=== PATIENT | male | born 1955 | race Two or more races ===

== ENCOUNTER 2017-04-23 16:10 | Inpatient (IN) | payer MEDICAID, OTHER ==
[~2017-04-23] VITALS: Ht 170.2 cm; Wt 65.0 kg
[2017-04-23 17:56] LABS: Basophils # (auto) 0 uL; Eosinophils # (auto) 0 uL; Hematocrit 36.6 % (41.0-53.0); Hemoglobin 12.7 g/dL (13.5-17.5); Monocytes # (auto) 0.2 uL; White Blood Cell 2.7 10^3/uL (4.4-10.8)
[2017-04-23 17:57] LABS: Basophils % (auto) 0.5 % (0.0-2.0); Eosinophils % (auto) 0.2 % (0.0-7.0); Lymphocytes # (auto) 0.3 uL; Mean Corpuscular Hemoglobin 30.8 pg (28.0-32.0); Mean Corpuscular Hgb Conc. 34.7 g/dL (32.0-36.0); Mean Corpuscular Volume 88.7 fL (80.0-100.0); Monocytes % (auto) 7.6 % (0.0-12.0); Neutrophils # (auto) 2.1 uL; Neutrophils % (auto) 78.7 % (37.0-80.0); Nucleated Red Blood Cells % 0.2 %; Platelet Count (auto) 40 10^3/uL (140-450); Red Blood Cells 4.12 10^6/uL (4.5-5.90); Red Cell Distribution Width 14.7 % (11.8-14.3)
[2017-04-23 18:05] LABS: Albumin 2.8 g/dL (3.4-5.0); BUN/Creatinine Ratio 7.9; Calcium 7.7 mg/dL (8.5-10.1); Potassium 3.4 mmol/L (3.5-5.1)
[2017-04-23 18:09] LABS: Bilirubin, Total 1.6 mg/dL (0.2-1.0); Total Protein 7.4 g/dL (6.4-8.2)
[2017-04-23] MEDS ORDERED: SODIUM CHLORIDE 0.9% 1,000 ML IV ONE (23:45)
[2017-04-23] MEDS ORDERED: HYDROcodone-ACET 5/325MG TAB PO PRN (23:45)
[2017-04-23] MEDS ORDERED: TEMAZEPAM 15 MG CAP PO PRN (23:45)
[2017-04-23] MEDS ORDERED: chlordiazePOXIDE HCL 5 MG CAP PO PRN (23:45)
[2017-04-23] MEDS ORDERED: ONDANSETRON HCL 4 MG/2 ML VIAL IV PRN (23:45)
[2017-04-23] MEDS ORDERED: SODIUM CHLORIDE 0.9% 1,000 ML IV SCH (23:45)
[2017-04-23] MEDS ORDERED: POTASSIUM CHL 20 Meq TABLET PO ONE (23:45)
[2017-04-23] MEDS ORDERED: ACETAMINOPHEN 325 MG TAB PO PRN (23:45)
[2017-04-24] VITALS (10 sets, daily range): BP systolic 118–150; BP diastolic 67–86
[2017-04-24 08:11] LABS: Eosinophils # (auto) 0 uL; Hemoglobin 11.3 g/dL (13.5-17.5); Monocytes # (auto) 0.3 uL; White Blood Cell 2.7 10^3/uL (4.4-10.8)
[2017-04-24 08:14] LABS: Basophils # (auto) 0 uL; Basophils % (auto) 0.6 % (0.0-2.0); Eosinophils % (auto) 0.9 % (0.0-7.0); Hematocrit 31.9 % (41.0-53.0); Lymphocytes # (auto) 0.5 uL; Lymphocytes % (auto) 18.9 % (10.0-50.0); Mean Corpuscular Hemoglobin 31.1 pg (28.0-32.0); Mean Corpuscular Hgb Conc. 35.3 g/dL (32.0-36.0); Mean Corpuscular Volume 88.1 fL (80.0-100.0); Monocytes % (auto) 12.5 % (0.0-12.0); Neutrophils # (auto) 1.8 uL; Neutrophils % (auto) 67.1 % (37.0-80.0); Nucleated Red Blood Cells % 0.2 %; Platelet Count (auto) 36 10^3/uL (140-450); Red Blood Cells 3.62 10^6/uL (4.5-5.90)
[2017-04-24 08:27] LABS: Albumin 2.5 g/dL (3.4-5.0); BUN/Creatinine Ratio 8.6; Bilirubin, Total 1.7 mg/dL (0.2-1.0); Total Protein 6.9 g/dL (6.4-8.2)
[2017-04-24] MEDS ORDERED: SPIRONOLACTONE 25 MG TAB PO SCH (10:00)
[2017-04-24] MEDS: ENOXAPARIN SOD 40 MG/0.4 ML SYRINGE SC SCH (10:10)
[2017-04-24] MEDS: FOLIC ACID 1 MG TAB PO SCH (10:10)
[2017-04-24] MEDS: THIAMINE HCL 100 MG TAB PO SCH (10:11)
[2017-04-24] MEDS: FAMOTIDINE 20 MG TAB PO SCH ×2 (10:11→23:03)
[2017-04-24] MEDS ORDERED: PROPRANOLOL HCL 20 MG TAB PO ONE (12:30)
[2017-04-24] MEDS ORDERED: FUROSEMIDE 20 MG TAB PO ONE (12:30)
[2017-04-24] MEDS ORDERED: IOHEXOL 300 MG/ML 100ML BOTTLE IJ ONE (13:07)
[2017-04-24 13:39] LABS: INR 1.34 (0.9-1.15); Partial Thromboplastin Time 30.3 sec (22.64-33.71); Prothrombin Time 14.7 sec (9.37-12.3)
[2017-04-24] MEDS: NutriHep 250 mL Bottle PO SCH (22:00)
[2017-04-24] MEDS: PROPRANOLOL HCL 20 MG TAB PO SCH (22:00)
[2017-04-24] MEDS: SPIRONOLACTONE 25 MG TAB PO SCH (23:03)
[2017-04-25] VITALS (15 sets, daily range): BP systolic 104–137; BP diastolic 57–78
[2017-04-25 08:34] LABS: Basophils # (auto) 0 uL; Eosinophils # (auto) 0 uL; Hemoglobin 10.7 g/dL (13.5-17.5); Lymphocytes # (auto) 0.3 uL; Monocytes # (auto) 0.4 uL; Neutrophils # (auto) 1.5 uL; Red Blood Cells 3.46 10^6/uL (4.5-5.90); Red Cell Distribution Width 14.8 % (11.8-14.3); White Blood Cell 2.3 10^3/uL (4.4-10.8)
[2017-04-25 08:36] LABS: Basophils % (auto) 0.8 % (0.0-2.0); Eosinophils % (auto) 1.4 % (0.0-7.0); Hematocrit 30.2 % (41.0-53.0); Lymphocytes % (auto) 14.4 % (10.0-50.0); Mean Corpuscular Hgb Conc. 35.5 g/dL (32.0-36.0); Mean Corpuscular Volume 87.4 fL (80.0-100.0); Monocytes % (auto) 17.3 % (0.0-12.0); Neutrophils % (auto) 66.1 % (37.0-80.0); Nucleated Red Blood Cells % 0.5 %
[2017-04-25 08:48] LABS: Platelet Count (auto) 38 10^3/uL (140-450)
[2017-04-25 09:00] LABS: Albumin 2.5 g/dL (3.4-5.0); BUN/Creatinine Ratio 11.9; Bilirubin, Total 3.1 mg/dL (0.2-1.0); Calcium 7.5 mg/dL (8.5-10.1); Potassium 3.3 mmol/L (3.5-5.1); Total Protein 6.7 g/dL (6.4-8.2)
[2017-04-25 10:38] LABS: Basophils # (auto) 0 uL; Eosinophils # (auto) 0 uL; Hemoglobin 12.5 g/dL (13.5-17.5); Monocytes # (auto) 0.4 uL; Neutrophils # (auto) 2.2 uL; White Blood Cell 3.1 10^3/uL (4.4-10.8)
[2017-04-25] MEDS: THIAMINE HCL 100 MG TAB PO SCH (10:39)
[2017-04-25] MEDS: FUROSEMIDE 20 MG TAB PO SCH (10:39)
[2017-04-25 10:40] LABS: Basophils % (auto) 0.8 % (0.0-2.0); Hematocrit 36.1 % (41.0-53.0); Lymphocytes # (auto) 0.3 uL; Lymphocytes % (auto) 11.3 % (10.0-50.0); Mean Corpuscular Hemoglobin 30.6 pg (28.0-32.0); Mean Corpuscular Hgb Conc. 34.5 g/dL (32.0-36.0); Mean Corpuscular Volume 88.6 fL (80.0-100.0); Monocytes % (auto) 14.1 % (0.0-12.0); Neutrophils % (auto) 72.8 % (37.0-80.0); Nucleated Red Blood Cells % 0.1 %; Platelet Count (auto) 55 10^3/uL (140-450); Red Blood Cells 4.07 10^6/uL (4.5-5.90); Red Cell Distribution Width 15.2 % (11.8-14.3)
[2017-04-25] MEDS: SPIRONOLACTONE 25 MG TAB PO SCH ×2 (10:40→21:18)
[2017-04-25] MEDS: FOLIC ACID 1 MG TAB PO SCH (10:40)
[2017-04-25] MEDS: ENOXAPARIN SOD 40 MG/0.4 ML SYRINGE SC SCH (10:40)
[2017-04-25] MEDS: FAMOTIDINE 20 MG TAB PO SCH ×2 (10:40→21:18)
[2017-04-25 10:55] LABS: INR 1.34 (0.9-1.15); Prothrombin Time 14.7 sec (9.37-12.3)
[2017-04-25] MEDS ORDERED: ALBUMIN 25% 100 ML IV SCH (11:00)
[2017-04-25] MEDS ORDERED: LIDOCAINE 2%HCL (LOCAL ANESTH.) INJ 20ML MDV ONE (14:42)
[2017-04-25] MEDS: NutriHep 250 mL Bottle PO SCH ×2 (15:19→21:19)
[2017-04-25] MEDS: PROPRANOLOL HCL 20 MG TAB PO SCH ×2 (15:20→21:18)
[2017-04-26 05:59] VITALS: BP 128/71
[2017-04-26 08:42] VITALS: BP 118/76
[2017-04-26] MEDS: SPIRONOLACTONE 25 MG TAB PO SCH (10:43)
[2017-04-26] MEDS: PROPRANOLOL HCL 20 MG TAB PO SCH (10:43)
[2017-04-26] MEDS: FOLIC ACID 1 MG TAB PO SCH (10:43)
[2017-04-26] MEDS: FUROSEMIDE 20 MG TAB PO SCH (10:44)
[2017-04-26] MEDS: THIAMINE HCL 100 MG TAB PO SCH (10:44)
[2017-04-26] MEDS: FAMOTIDINE 20 MG TAB PO SCH (10:44)
[2017-04-26] MEDS ORDERED: FUR20T PO (10:48)
[2017-04-26] MEDS ORDERED: FOLI1TAB6 PO (10:48)
[2017-04-26] MEDS ORDERED: PRO20T PO (10:48)
[2017-04-26] MEDS ORDERED: THIA100T11 PO (10:48)
[2017-04-26] MEDS ORDERED: SPIR25TA88 PO (10:48)
[2017-04-26 11:09] VITALS: BP 118/76
[2017-04-26 13:11] VITALS: BP 108/62
== END 2017-04-26 14:30 | disposition home or self-care (01) | DRG 280 ==
LOC: EDBD 16:10 → ER 16:13 → OVERFLOW 16:14 → CENTRAL 04-24 02:04
PROVIDERS: ADMIT Nurse Practitioner; ATTEND Internal Medicine
PROC: 0W9G30Z Drainage of Peritoneal Cavity with Drainage Device, Percutaneous Approach (ICD-10-PCS; principal; 2017-04-25)
DX: K70.31 Alcoholic cirrhosis of liver with ascites (principal); E43 Unspecified severe protein-calorie malnutrition; D61.818 Other pancytopenia; K76.6 Portal hypertension; D68.4 Acquired coagulation factor deficiency; E88.09 Other disorders of plasma-protein metabolism, not elsewhere classified; F10.129 Alcohol abuse with intoxication, unspecified; M19.90 Unspecified osteoarthritis, unspecified site; K46.9 Unspecified abdominal hernia without obstruction or gangrene; Z59.0 Homelessness; Z82.49 Family history of ischemic heart disease and other diseases of the circulatory system; Z68.22 Body mass index [BMI] 22.0-22.9, adult
CPT/HCPCS: 10030; 36415; 49083; 70450; 74176; 74177; 76700; 76942; 80053; 80320; 82105; 82140; 85025; 85610; 85730; 86850; 86900; 86901; 89051; 96360

== ENCOUNTER 2017-08-14 14:06 | Inpatient (IN) | payer MEDICAID ==
[~2017-08-14] VITALS: Ht 160 cm; Wt 66.2 kg
[~2017-08-14 14:06] MED LIST: FOLI1TAB6 PO; FUR20T PO; PRO20T PO; SPIR25TA88 PO; THIA100T11 PO
[2017-08-14 15:06] LABS: Hematocrit 32.4 % (41.0-53.0); Hemoglobin 10.5 g/dL (13.5-17.5); Mean Corpuscular Hemoglobin 27.7 pg (28.0-32.0); Mean Corpuscular Hgb Conc. 32.5 g/dL (32.0-36.0); Platelet Count (auto) 127 10^3/uL (140-450); Red Blood Cells 3.81 10^6/uL (4.5-5.90); Red Cell Distribution Width 18.7 % (11.8-14.3); White Blood Cell 5.5 10^3/uL (4.4-10.8)
[2017-08-14 15:15] LABS: Basophils % (manual) 0 (0.0-2.0); Blast Cells 0; Metamyelocytes % 0; Myelocytes % 0; Promyelocytes % 0; Reactive Lymphocytes 0
[2017-08-14 15:23] LABS: Albumin 2.8 g/dL (3.4-5.0); BUN/Creatinine Ratio 25.8; Bilirubin, Total 1.4 mg/dL (0.2-1.0); Calcium 9.1 mg/dL (8.5-10.1); Potassium 3.7 mmol/L (3.5-5.1); Total Protein 8.3 g/dL (6.4-8.2)
[2017-08-14 16:36] LABS: Band Neutrophils % (manual) 0; Eosinophils % (manual) 1 (0-7); Lymphocytes % (manual) 9 (10.0-50.0); Monocytes % (manual) 10 (0-12)
[2017-08-14] MEDS ORDERED: IOHEXOL 300 MG/ML 100ML BOTTLE IJ ONE (22:06)
[2017-08-14] MEDS ORDERED: fentaNYL CITRATE 100 MCG/2 ML VL IV ONE (22:15)
[2017-08-14] MEDS ORDERED: TEMAZEPAM 15 MG CAP PO PRN (23:00)
[2017-08-14] MEDS ORDERED: MORPHINE SULFATE 4 MG/ML SYR/VIAL IV PRN (23:00)
[2017-08-14] MEDS ORDERED: ONDANSETRON HCL 4 MG/2 ML VIAL IV PRN (23:00)
[2017-08-14] MEDS ORDERED: SODIUM CHLORIDE 0.9% 1,000 ML IV SCH (23:00)
[2017-08-14] MEDS ORDERED: HYDROcodone-ACET 5/325MG TAB PO PRN (23:00)
[2017-08-14] MEDS ORDERED: ACETAMINOPHEN 325 MG TAB PO PRN (23:00)
[2017-08-15 02:00] VITALS: BP 107/62
[2017-08-15] MEDS ORDERED: FAMOTIDINE 20 MG TAB PO SCH (10:00)
[2017-08-15] MEDS ORDERED: FUROSEMIDE 40 MG TAB PO SCH (10:00)
[2017-08-15] MEDS ORDERED: SPIRONOLACTONE 25 MG TAB PO SCH (10:00)
[2017-08-15] MEDS ORDERED: PROPRANOLOL HCL 20 MG TAB PO SCH (10:00)
[2017-08-15] MEDS ORDERED: ENOXAPARIN SOD 40 MG/0.4 ML SYRINGE SC SCH (10:00)
[2017-08-15] MEDS ORDERED: FOLIC ACID 1 MG TAB PO SCH (10:00)
== END 2017-08-15 02:00 | disposition short-term general hospital (02) | DRG 385 ==
LOC: ER 14:06 → OVERFLOW 14:07
PROVIDERS: ADMIT Nurse Practitioner; ATTEND Family Medicine
DX: R22.1 Localized swelling, mass and lump, neck (principal); C78.7 Secondary malignant neoplasm of liver and intrahepatic bile duct; K74.60 Unspecified cirrhosis of liver; F10.129 Alcohol abuse with intoxication, unspecified; K21.9 Gastro-esophageal reflux disease without esophagitis; M19.90 Unspecified osteoarthritis, unspecified site; Y90.9 Presence of alcohol in blood, level not specified
CPT/HCPCS: 36415; 70491; 80053; 85007; 85027; 96374

== ENCOUNTER 2017-08-28 09:49 | Emergency (ER) | payer MEDICAID ==
[~2017-08-28] VITALS: Ht 160 cm; Wt 77.1 kg
[2017-08-28] MEDS ORDERED: IOHEXOL 300 MG/ML 100ML BOTTLE IJ ONE (10:08)
[2017-08-28] MEDS ORDERED: KETOROLAC TROMETH 60MG/2ML VIAL IM ONE (10:45)
[2017-08-28 11:45] VITALS: BP 120/61
== END 2017-08-28 11:51 | disposition home or self-care (01) ==
LOC: ER 09:52
DX: G89.29 Other chronic pain (principal); M54.2 Cervicalgia; M19.90 Unspecified osteoarthritis, unspecified site; K21.9 Gastro-esophageal reflux disease without esophagitis; H92.02 Otalgia, left ear; Z79.899 Other long term (current) drug therapy
CPT/HCPCS: 96372; 99283; J1885; J7030

== ENCOUNTER 2017-09-19 08:59 | Emergency (ER) | payer MEDICAID, OTHER ==
[~2017-09-19] VITALS: Ht 160 cm; Wt 63.5 kg
[2017-09-19] MEDS ORDERED: IOHEXOL 300 MG/ML 100ML BOTTLE IJ ONE (09:46)
[2017-09-19 09:48] LABS: Basophils # (auto) 0 uL; Basophils % (auto) 0.2 % (0.0-2.0); Eosinophils # (auto) 0.1 uL; Eosinophils % (auto) 1.8 % (0.0-7.0); Hemoglobin 8.9 g/dL (13.5-17.5); Lymphocytes # (auto) 0.6 uL; Lymphocytes % (auto) 11.7 % (10.0-50.0); Mean Corpuscular Hemoglobin 28.8 pg (28.0-32.0); Mean Corpuscular Volume 84.7 fL (80.0-100.0); Monocytes # (auto) 0.6 uL; Monocytes % (auto) 11.9 % (0.0-12.0); Neutrophils # (auto) 3.5 uL; Neutrophils % (auto) 74.4 % (37.0-80.0); Nucleated Red Blood Cells % 0.1 %; Platelet Count (auto) 78 10^3/uL (140-450); Red Blood Cells 3.08 10^6/uL (4.5-5.90); White Blood Cell 4.8 10^3/uL (4.4-10.8)
[2017-09-19 10:03] LABS: Red Cell Distribution Width 22.8 % (11.8-14.3)
[2017-09-19 10:07] LABS: Albumin 2.5 g/dL (3.4-5.0); Calcium 8.4 mg/dL (8.5-10.1); Potassium 3.5 mmol/L (3.5-5.1)
[2017-09-19 10:12] LABS: BUN/Creatinine Ratio 11.1; Bilirubin, Total 1.8 mg/dL (0.2-1.0); Total Protein 6.8 g/dL (6.4-8.2)
[2017-09-19 11:35] VITALS: BP 101/60
== END 2017-09-19 11:37 | disposition home or self-care (01) ==
LOC: ER 08:59
DX: R22.1 Localized swelling, mass and lump, neck (principal); C22.0 Liver cell carcinoma; M19.90 Unspecified osteoarthritis, unspecified site; K21.9 Gastro-esophageal reflux disease without esophagitis; Z88.8 Allergy status to other drugs, medicaments and biological substances; Z79.899 Other long term (current) drug therapy
CPT/HCPCS: 36415; 70491; 80053; 85025; 99285; Q9967